=== PATIENT | female | born 1935 | race Caucasian/White ===

== ENCOUNTER → 2017-07-03 | Outpatient (CLI) | payer MEDICARE, OTHER ==
[~2017-07-03] MED LIST: AMIO200T2 PO; ATOR20TA38 PO; CHOL100012 PO; FER325 PO; FURO20TA3 PO; IBAN150T7 PO; ISOS60TA PO; METO25TA4 PO; PROM5SYR2 PO
--- NOTE | 2017-07-03 14:17 | RADRPT ---
PROCEDURE: Chest x-ray CLINICAL INDICATION: Cough TECHNIQUE: Chest 2 views COMPARISON: 05/05/2016 FINDINGS: As before there is left chest dual lead pacemaker. Stable mild cardiomegaly and an sclerotic aortic calcification is seen. There is ongoing mild central venous congestion. No confluent pneumonia seen. Costophrenic angles are sharp. There is moderate degenerative change of the spine with large anteri or osteophytes of the lower thoracic spine. Associated kyphosis is seen.. IMPRESSION: 1. Mild cardiomegaly with ongoing mild chronic interstitial CHF. 2. Atherosclerotic aortic calcification. 3. Pacemaker RPTAT: HH .Nilay Hebert MD, MD Date Time Electronically viewed and signed by .Nilay Hebert MD, on 07/03/2017 14:16 .W/
== END | disposition home or self-care (01) ==
LOC: RAD 13:21
PROVIDERS: ATTEND Internal Medicine
DX: I70.0 Atherosclerosis of aorta (principal); I51.7 Cardiomegaly; Z95.0 Presence of cardiac pacemaker; R05 Cough
CPT/HCPCS: 71020

== ENCOUNTER 2018-11-11 11:27 | Emergency (ER) | payer MEDICARE, OTHER ==
[~2018-11-11] VITALS: Ht 149.9 cm; Wt 54.5 kg
[~2018-11-11 11:27] MED LIST changes: -AMIO200T2 PO; +AMIO200T4 PO
[2018-11-11 11:31] VITALS: Ht 149.9 cm; Wt 54.5 kg
--- NOTE | 2018-11-11 11:34 | ERD ---
ER Documentation Chief Complaint Chief Complaint Right knee pain HPI The patient is a 83-year-old female, presenting to the ER because of acute right knee pain/swelling for 1 day, had similar symptoms previously that was relieved with a steroid injection about 6 months ago by the orthopedist Dr Lomax. She denies any trauma, fever, chills, neck pain, chest pain, dyspnea, abdominal pain, vomiting, dysuria, diarrhea. The history is limited due to language barrier, mostly obtained from EMS and medical record Medical history: CAD, COPD, hypertension, history of CHF, history of sick sinus syndrome, dyslipidemia Past surgical history: Stent PCI, pacemaker, cholecystectomy ROS All systems reviewed and are negative except as per history of present illness. Medications Home Meds Active Scripts Acetaminophen* (Tylenol*) 325 Mg Tablet, 2 TAB PO Q6 PRN for PAIN AND OR ELEVATED TEMP, #20 TAB Prov:IZAIAH PHELAN MD 11/11/18 Reported Medications Apixaban* (Eliquis*) 5 Mg Tablet, 5 MG PO BID, TAB 11/11/18 Allopurinol* (Allopurinol*) 100 Mg Tablet, 100 MG PO DAILY, TAB 11/11/18 Icosapent Ethyl (VASCEPA) 1 Gm Capsule, 2 GM PO BID, CAP 11/11/18 Memantine HCl/Donepezil HCl (Namzaric 14 mg-10 mg Capsule) 1 Each Cap.spr.24, 1 EACH PO DAILY 11/11/18 Metoprolol Succinate* (Toprol XL*) 25 Mg Tab.sr.24h, 25 MG PO BID, #30 TAB 11/11/18 Isosorbide Mononitrate* (Isosorbide Mononitrate*) 30 Mg Tab.er.24h, 90 MG PO DAILY, TAB.SA 11/11/18 Furosemide* (Lasix*) 20 Mg Tablet, 20 MG PO DAILY, TAB 11/11/18 Cholecalciferol* (Vitamin D3*) 1,000 Unit Tablet, 1000 UNIT PO DAILY, TAB 11/11/18 Atorvastatin Calcium* (Atorvastatin Calcium*) 20 Mg Tablet, 20 MG PO QHS, #30 TAB 11/11/18 Ferrous Sulfate* (Ferrous Sulfate*) 325 Mg Tabec, 325 MG PO BID, TAB 11/11/18 Amiodarone Hcl* (Amiodarone Hcl*) 200 Mg Tablet, 200 MG PO BID, #30 TAB 11/11/18 Discontinued Reported Medications Ibandronate Sodium* (Boniva*) 150 Mg Tablet, 150 MG PO Q28D, TAB 05/06/16 Furosemide* (Furosemide*) 20 Mg Tablet, 20 MG PO DAILY, #30 TAB 05/06/16 Ferrous Sulfate* (Ferrous Sulfate*) 325 Mg Tabec, 325 MG PO BID, TAB 05/06/16 Atorvastatin Calcium* (Atorvastatin Calcium*) 20 Mg Tablet, 20 MG PO QHS, #30 TAB 05/06/16 Amiodarone Hcl* (Amiodarone Hcl*) 200 Mg Tablet, 200 MG PO DAILY, #30 TAB 05/06/16 Cholecalciferol (Vitamin D3) 1,000 Unit Tab.chew, 1000 UNIT PO DAILY, TAB.CHEW 05/06/16 Promethazine HCl/Codeine (Prometh-Codein 6.25-10 mg/5 ml) 5 Ml Syrup, 5 ML PO BID 05/06/16 Metoprolol Tartrate* (Lopressor*) 25 Mg Tablet, 25 MG PO BID, #60 TAB 05/06/16 Isosorbide Mononitrate* (Isosorbide Mononitrate*) 60 Mg Tab.er.24h, 90 MG PO DAILY, TAB 05/06/16 Allergies Allergies: Coded Allergies: No Known Drug Allergy (Verified Allergy, Unknown, 11/11/18) PMhx/Soc History of Surgery: Yes (STENT PCI, PACEMAKER, CHOLECYSTECTOMY) Anesthesia Reaction: No Hx Neurological Disorder: No Hx Respiratory Disorders: Yes (COPD) Hx Cardiac Disorders: Yes (CAD, HTN) Hx Psychiatric Problems: No Hx Miscellaneous Medical Probl: No Hx Alcohol Use: No Hx Substance Use: No Hx Tobacco Use: No Physical Exam Vitals Vital Signs Date Temp Pulse Resp B/P (MAP) Pulse Ox O2 O2 Flow FiO2 Time Delivery Rate 11/11/18 81 14 128/53 100 Room Air 12:30 (78) 11/11/18 83 14 145/67 100 Room Air 11:33 (93) 11/11/18 99.4 81 16 145/67 97 11:31 (93) Physical Exam Const: No acute respiratory distress. Head: Atraumatic. Eyes: Normal Conjunctiva. ENT: Normal External Ears, Nose and Mouth. Neck: Full range of motion. No meningismus. Resp: Clear to auscultation bilaterally. Cardio: Regular rate and rhythm Abd: Soft, non distended, normal bowel sounds, non tender. Skin: No petechiae or rashes. Back: No midline or flank tenderness. Ext: Right knee is edematous, sensitive to touch, tender, minimal vague calf tenderness, limited ROM Neur: Awake and alert. No focal deficit Psych: Anxious Result Diagram: 11/11/18 1210 11/11/18 1210 Results 24 hrs Laboratory Tests Test 11/11/18 12:10 White Blood Count 9.6 10^3/ul Red Blood Count 4.07 10^6/ul Hemoglobin 11.4 g/dl Hematocrit 36.2 % Mean Corpuscular Volume 88.9 fl Mean Corpuscular Hemoglobin 28.0 pg Mean Corpuscular Hemoglobin Concent 31.5 g/dl Red Cell Distribution Width 16.8 % Platelet Count 267 10^3/UL Mean Platelet Volume 10.2 fl Immature Granulocytes % 0.400 % Neutrophils % 72.0 % Lymphocytes % 17.3 % Monocytes % 9.1 % Eosinophils % 0.9 % Basophils % 0.3 % Nucleated Red Blood Cells % 0.0 /100WBC Immature Granulocytes # 0.040 10^3/ul Neutrophils # 6.9 10^3/ul Lymphocytes # 1.7 10^3/ul Monocytes # 0.9 10^3/ul Eosinophils # 0.1 10^3/ul Basophils # 0.0 10^3/ul Nucleated Red Blood Cells # 0.0 10^3/ul Erythrocyte Sedimentation Rate 79 mm/Hr Prothrombin Time 13.6 Sec Prothrombin Time Ratio 1.1 INR International Normalized Ratio 1.03 Activated Partial Thromboplast Time 31.4 Sec Sodium Level 139 mmol/L Potassium Level 4.7 mmol/L Chloride Level 104 mmol/L Carbon Dioxide Level 29 mmol/L Anion Gap 6 Blood Urea Nitrogen 17 mg/dl Creatinine 0.72 mg/dl Est Glomerular Filtrat Rate mL/min mL/min Glucose Level 109 mg/dl Uric Acid 5.0 mg/dl Calcium Level 9.1 mg/dl Current Medications Medications Dose Sig/Charles Start Time Status Last (Trade) Ordered Route PRN Stop Time Admin Dose Reason Admin Morphine 2 mg ONCE STAT 11/11/18 DC 11/11/18 Sulfate IV 11:40 11/11/18 12:07 (morphine) 11:43 Ondansetron 4 mg ONCE STAT 11/11/18 DC 11/11/18 HCl (Zofran IV 11:40 11/11/18 12:07 Inj) 11:43 Procedures/MDM [place] [address] Radiology Main Line: [phone] DIAGNOSTIC IMAGING REPORT Patient: JOSE D BROWN : 1935 Age: 83 Sex: F MR #: [id number] DOS: 11/11/18 1140 Ordering MD: IZAIAH PHELAN MD Location: E/R Room/Bed: PROCEDURE: US right Lower extremity Venous. CLINICAL INDICATION: Right leg TECHNIQUE: Multiple sonographic images of the right lower extremity deep venous system was obtained utilizing grayscale, color-flow, compressive so nography and doppler imaging with augmentation. COMPARISON: None. FINDINGS: There is normal compressibility and flow within the right common femoral, deep femoral, superficial femoral, posterior tibial, peroneal and popliteal veins. IMPRESSION: No sonographic evidence for deep venous thrombosis of the right lower extremity. RPTAT:AAJJ . Physician Kami Date Time Electronically viewed and signed by Physician Kami on 11/11/2018 13:29 BM/ CC: IZAIAH PHELAN MD [id number] [place] [address] Radiology Main Line: [phone] DIAGNOSTIC IMAGING REPORT Patient: JOSE D BROWN : 1935 Age: 83 Sex: F MR #: [id number] DOS: 11/11/18 1140 Ordering MD: IZAIAH PHELAN MD Location: E/R Room/Bed: PROCEDURE: Right knee x-ray CLINICAL INDICATION: Knee pain TECHNIQUE: AP, lateral and oblique views of the right knee were obtained. COMPARISON: None FINDINGS: Alignment/Structure No acute fracture or malalignment. Normal mineralization. Degenerative changes There is moderate medial compartment predominant, tricompartmental joint space narrowing with osteophytosis. Soft tissues and spaces The soft tissues are unremarkable. Small joint effusion. Chondrocalcinosis. IMPRESSION: Small joint effusion. There is moderate medial compartment predominant, tricompartmental degenerative osteoarthritis of the knee. Chondrocalcinosis is present which can be seen with CPPD. RPTAT: AA Physician Surinder Date Time Electronically viewed and signed by Physician Surinder on 11/11/2018 12:22 RB/ CC: IZAIAH PHELAN MD [id number] MEDICAL MAKING DECISION: The patient is a 83-year-old female, presenting with severe right knee arthritis, was treated with morphine 2 mg IV for pain, Zofran 4 mg IV for nausea with good response. ESR is elevated but it is nonspecific I do not suspect acute septic joint. Uric acid is normal, I do not suspect acute gouty arthritis The differential diagnoses considered include but are not limited to severe osteoarthritis, septic joint, gouty arthritis Departure Diagnosis: Primary Impression: Osteoarthritis of right knee Condition: Good Comments She was discharged with Tylenol and I discussed the findings with the patient and the son. I advised the patient to follow-up with Dr Lomax in about 1-2 days for further [place]/tx Disclaimer: Inadvertent spelling and grammatical errors are likely due to EHR/dictation software use and do not reflect on the overall quality of patient care. Also, please note that the electronic time recorded on this note does not necessarily reflect the actual time of the patient encounter. IZAIAH PHELAN MD Nov 11, 2018 11:34
[2018-11-11] MEDS ORDERED: morphine 2 MG INJ IV STA (11:40)
[2018-11-11] MEDS ORDERED: ONDANSETRON 4 MG INJ IV STA (11:40)
[2018-11-11] MEDS ORDERED: AMIO200T4 PO (13:02)
[2018-11-11] MEDS ORDERED: ATOR20TA38 PO (13:03)
[2018-11-11] MEDS ORDERED: FER325 PO (13:03)
[2018-11-11] MEDS ORDERED: CHOL100062 PO (13:04)
[2018-11-11] MEDS ORDERED: FURO-110 PO (13:05)
[2018-11-11] MEDS ORDERED: ISOS30TA67 PO (13:06)
[2018-11-11] MEDS ORDERED: METO-335 PO (13:06)
[2018-11-11] MEDS ORDERED: ICOS1CAP PO (13:07)
[2018-11-11] MEDS ORDERED: MEMA1CAP2 PO (13:07)
[2018-11-11] MEDS ORDERED: ALLO100T PO (13:08)
[2018-11-11] MEDS ORDERED: APIX5TAB PO (13:08)
[2018-11-11] MEDS ORDERED: ACET325T33 PO (13:13)
[2018-11-11 13:30] VITALS: BP 131/56; PULSE 80; RESP 17
== END 2018-11-11 13:30 | disposition home or self-care (01) ==
LOC: E/R 11:27
DX: M19.90 Unspecified osteoarthritis, unspecified site (principal); I25.10 Atherosclerotic heart disease of native coronary artery without angina pectoris; J44.9 Chronic obstructive pulmonary disease, unspecified; I10 Essential (primary) hypertension; I50.9 Heart failure, unspecified; Z95.0 Presence of cardiac pacemaker; Z79.01 Long term (current) use of anticoagulants
CPT/HCPCS: 73562; 80048; 84560; 85025; 85610; 85651; 85730; 93971; 96374; 96375; 99285; J2270; J2405